=== PATIENT | male | born 1945 | race Caucasian/White ===

== ENCOUNTER → 2018-01-06 | Outpatient (CLI) | payer OTHER ==
[~2018-01-06] MED LIST: ALEVE220 MG PO; ASPIR 8181 M1 PO; ATORVASTATIN CA20 MG PO; ATORVASTATIN CA80 MG PO; BRILINTA90 MG PO; CRESTOR20 MG PO; FISH OIL 1,0001 EA10 PO; FISH OIL 1,0001 EAC7 PO; FLOMAX0.4 MG PO; GABAPENTIN100 MG PO; GEMFIBROZIL600 MG PO; HUMULIN N100 UNITS/ SC; HYDROCHLOROTHIA25 MG PO; LEVOFLOXACIN750 MG PO; LISINOPRIL5 MG PO; LO-DOSE ASPIRIN81 M1 PO; LOPRESSOR25 MG PO; METOPROLOL TART25 MG PO; NORVASC2.5 MG PO; NORVASC5 MG PO; NOVOLIN N100 UNITS/ SC; PENTOXIFYLLINE400 MG PO; PLAVIX75 MG PO; PRAVACHOL10 MG PO; PRAVACHOL40 MG PO; PRAVASTATIN SOD10 MG PO; PROVENTIL HFA6.7 GM IH; QUINAPRIL HCL20 MG PO; VENTOLIN HFA18 GM IH; VITAMIN D1000 UNIT PO; VITAMIN D31000 UNI2 PO
== END | disposition home or self-care (01) ==
LOC: CDC 11:34
DX: Z01.810 Encounter for preprocedural cardiovascular examination (principal); I70.25 Atherosclerosis of native arteries of other extremities with ulceration
CPT/HCPCS: 93000